=== PATIENT | female | born 1950 | race Caucasian/White ===

== ENCOUNTER 2016-06-02 12:56 | Emergency (ER) | payer MEDICARE ==
[2016-06-02 12:57] VITALS: BMI 43.0
--- NOTE | 2016-06-02 13:03 | C.PDOC ---
History Of Present Illness 66F hx of asthma and HTN c/o SOB and wheezing for the last 2 days. productive cough yellow sputum as well. subjective fever a couple days ago none today. reports her BP was high this morning as well. Time Seen by Provider: 06/02/16 13:02 Chief Complaint (Nursing): Shortness Of Breath Past Medical History Vital Signs: Last Vital Signs Temp 97.4 F L 06/02/16 12:57 Pulse 62 06/02/16 12:57 Resp 24 06/02/16 14:16 BP 190/98 H 06/02/16 12:57 Pulse Ox 99 06/02/16 13:52 - Medical History PMH: Arthritis, Asthma, HTN Surgical History: Cholecystectomy Family History: States: Unknown Family Hx - Social History Hx Tobacco Use: No Hx Alcohol Use: No Hx Substance Use: No - Immunization History Hx Tetanus Toxoid Vaccination: Yes Hx Influenza Vaccination: Yes Hx Pneumococcal Vaccination: Yes Review Of Systems Constitutional: Negative for: Fever, Chills, Weakness Cardiovascular: Negative for: Chest Pain, Edema Respiratory: Positive for: Cough, Shortness of Breath, Sputum, Wheezing. Negative for: Hemoptysis Gastrointestinal: Negative for: Nausea, Vomiting, Abdominal Pain Skin: Positive for: Rash (scattered itchy rash for over 2 months) Neurological: Negative for: Weakness, Numbness, Headache Physical Exam - Physical Exam Appears: Well, Non-toxic, No Acute Distress Skin: Warm, Dry Head: Atraumatic Eye(s): bilateral: PERRL Oral Mucosa: Moist Cardiovascular: Rhythm Regular, No Murmur Respiratory: No Accessory Muscle Use, No Rales, No Rhonchi, No Stridor, Wheezing (bilateral) Gastrointestinal/Abdominal: Soft, No Tenderness Extremity: No Calf Tenderness, No Swelling Neurological/Psych: Oriented x3, Other (no focal deficits) ED Course And Treatment O2 Sat by Pulse Oximetry: 99 Medical Decision Making Medical Decision Makinpm the pt feels better. on re-exam her wheezing is improved. she already has a lung specialist with whom she will follow up. return if worse. Disposition - Disposition Disposition: HOME/ ROUTINE Disposition Time: 14:27 Condition: IMPROVED - Clinical Impression Clinical Impression: Exacerbation of asthma, Respiratory infection
[2016-06-02] MEDS: Albuterol-Ipratrop 3 mg / 0.5 (3 ml) UD IH SCH ×3 (13:20→13:34)
[2016-06-02] MEDS ORDERED: Albuterol-Ipratrop 3 mg / 0.5 (3 ml) UD ONE (13:30)
[2016-06-02 14:47] VITALS: BP 162/84; PULSE 60; RESP 20; TEMP 97.5; O2SAT 98
--- NOTE | 2016-06-02 16:46 | RAD ---
HISTORY: sob wheezing COMPARISON: No prior. TECHNIQUE: Chest PA and lateral FINDINGS: LUNGS: No active pulmonary disease. PLEURA: No significant pleural effusion identified. No pneumothorax apparent. CARDIOVASCULAR: Normal. OSSEOUS STRUCTURES: No significant abnormalities. VISUALIZED UPPER ABDOMEN: Normal. OTHER FINDINGS: None. IMPRESSION: No active disease.
== END 2016-06-02 14:51 | disposition home or self-care (01) ==
LOC: C.ER 12:56
DX: J45.901 Unspecified asthma with (acute) exacerbation (principal); J06.9 Acute upper respiratory infection, unspecified

== ENCOUNTER 2016-08-25 04:32 | Emergency (ER) | payer MEDICARE ==
[2016-08-25 04:32] VITALS: BMI 43.0
[2016-08-25 04:44] VITALS: TEMP 98.1
[2016-08-25] MEDS ORDERED: Aluminum Hydroxide/Magnesium Hydroxide Susp (30 mL) PO STA (05:15)
[2016-08-25] MEDS ORDERED: Aluminum Hydroxide/Magnesium Hydroxide Susp (30 mL) ONE (05:24)
[2016-08-25 05:28] VITALS: RESP 18
--- NOTE | 2016-08-25 05:49 | C.PDOC ---
History Of Present Illness Patient is a 66 year old female who presents to the ER with a complaint of left sided throat pain since 19:00; 10 minutes after eating a coconut hard candy. Patient reports the pain as a scratching feeling. Denies choking, vomiting or recent injury. Time Seen by Provider: 08/25/16 04:45 Chief Complaint (Nursing): ENT Problem History Per: Patient History/Exam Limitations: None Onset/Duration Of Symptoms: Hrs Current Symptoms Are (Timing): Still Present Quality (Mouth/Throat): Other (Pain) Symptoms Have Been: Continuous Anticoagulant/Antiplatlet Use?: Unknown Recent Aspirin Use: Unknown Past Medical History Reviewed: Historical Data, Nursing Documentation, Vital Signs Vital Signs: Last Vital Signs Temp 98.1 F 08/25/16 06:04 Pulse 78 08/25/16 06:04 Resp 18 08/25/16 06:04 BP 179/82 H 08/25/16 06:04 Pulse Ox 97 08/25/16 06:26 - Medical History PMH: Arthritis, Asthma, HTN Surgical History: Cholecystectomy Family History: States: Unknown Family Hx - Social History Hx Tobacco Use: No Hx Alcohol Use: No Hx Substance Use: No - Immunization History Hx Tetanus Toxoid Vaccination: Yes Hx Influenza Vaccination: Yes Hx Pneumococcal Vaccination: Yes Review Of Systems ENT: Positive for: Throat Pain (Left sided). Negative for: Other (Choking) Gastrointestinal: Negative for: Vomiting Physical Exam - Physical Exam Appears: Non-toxic, No Acute Distress Skin: Normal Color, Warm, Dry, No Rash Head: Atraumatic, Normacephalic Eye(s): bilateral: Normal Inspection Oral Mucosa: Moist Throat: Normal, No Erythema, No Exudate, No Drooling Neck: Normal ROM, Supple Chest: Symmetrical, No Tenderness Cardiovascular: Rhythm Regular, No Friction Rub, No Murmur Respiratory: Normal Breath Sounds, No Rales, No Rhonchi, No Wheezing Gastrointestinal/Abdominal: Soft, No Tenderness Neurological/Psych: Oriented x3, Normal Speech, Normal Cognition, Normal Cranial Nerves, Normal Motor Gait: Steady ED Course And Treatment O2 Sat by Pulse Oximetry: 97 (Room air) Pulse Ox Interpretation: Normal Progress Note: Maalox administered. Lidocaine applied. On re-exam, the patient reports improvement of symptoms. Lungs are CTA, heart is RRR, abdomen is soft, non-tender and tolerating PO well. Ambulatory in the ED with stedy gait. Follow up with the medical doctor within 1-2 days. Return if worsened. Disposition - Disposition Referrals: [facility] at [facility] [Outside] Disposition: HOME/ ROUTINE Disposition Time: 05:47 Condition: GOOD Additional Instructions: Follow up with the medical doctor within 1-2 days. Return if worsened. Prescriptions: Mag&Al/Simet/Diphen/Lido [First Magic Mouthwash] 5 ml MM BID #1 kit Instructions: Foreign Body in Pharynx (ED) - Clinical Impression Clinical Impression: Sensation of foreign body in larynx - Scribe Statement The provider has reviewed the documentation as recorded by the Scribe Roel Lobo All medical record entries made by the Scribe were at my direction and personally dictated by me. I have reviewed the chart and agree that the record accurately reflects my personal performance of the history, physical exam, medical decision making, and the department course for this patient. I have also personally directed, reviewed, and agree with the discharge instructions and disposition.
[2016-08-25 06:05] VITALS: BP 179/82; PULSE 78
[2016-08-25 06:24] VITALS: O2SAT 97
== END 2016-08-25 06:06 | disposition home or self-care (01) ==
LOC: C.ER 04:32
DX: R09.89 Other specified symptoms and signs involving the circulatory and respiratory systems (principal); I10 Essential (primary) hypertension; M19.90 Unspecified osteoarthritis, unspecified site

== ENCOUNTER 2017-05-11 08:46 | Emergency (ER) | payer MEDICARE ==
[2017-05-11 08:59] VITALS: BMI 39.6
[2017-05-11 09:02] VITALS: RESP 18; O2SAT 98
[2017-05-11] MEDS ORDERED: Sodium Chloride 0.9% 500 ML IV ONE ×2 (09:31→09:56)
[2017-05-11 09:51] LABS: BASO # 0.1 K/uL (0.0-0.2); BASO % 0.7 % (0.0-2.0); EOS # 0.2 K/uL (0.0-0.7); HEMOGLOBIN 13.5 g/dL (11.0-16.0); LYMPH # 2.4 K/uL (1.0-4.3); LYMPH % 19.6 % (20.0-40.0); MEAN CELL VOLUME 83.2 fL (81.0-99.0); MEAN CORPUSCULAR HEMOGLOBIN 28.8 pg (27.0-31.0); MEAN CORPUSCULAR HGB CONC 34.6 g/dL (33.0-37.0); MEAN PLATELET VOLUME 9.7 fL (7.2-11.7); MONO # 0.8 K/uL (0.0-0.8); MONO % 6.9 % (0.0-10.0); NEUT # 8.6 K/uL (1.8-7.0); NEUT % 70.8 % (50.0-75.0); RBC 4.69 Mil/uL (3.80-5.20); RED CELL DISTRIBUTION WIDTH 13.9 % (11.5-14.5); WHITE BLOOD COUNT 12.2 K/uL (4.8-10.8)
--- NOTE | 2017-05-11 10:02 | RAD ---
PROCEDURE: CHEST RADIOGRAPH, 1 VIEW HISTORY: abd pain COMPARISON: Chest radiograph dated 06/02/2016. FINDINGS: LUNGS: Clear. PLEURA: Stable elevation of the right hemidiaphragm No pneumothorax or pleural fluid seen. CARDIOVASCULAR: Atherosclerotic aortic calcifications. Cardiomediastinal silhouette stably enlarged. OSSEOUS STRUCTURES: Unchanged. VISUALIZED UPPER ABDOMEN: Right upper quadrant surgical clips redemonstrated. OTHER FINDINGS: None. IMPRESSION: No active disease.
[2017-05-11] MEDS ORDERED: Iohexol 240 (50 ml) PO ONE (10:04)
--- NOTE | 2017-05-11 10:09 | C.PDOC ---
History Of Present Illness 67 year old female with a past medical history of constipation who presents to the emergency department with a complaint abdominal pain and discharge from the navel region x 2 weeks. Associated with vomiting, nausea, and dizziness. Reports seeing her primary care doctor and getting a colonoscopy completed with unremarkable results. Denies diarrhea. Time Seen by Provider: 05/11/17 09:15 Chief Complaint (Nursing): Abdominal Pain History Per: Patient History/Exam Limitations: no limitations Past Medical History Reviewed: Historical Data, Nursing Documentation, Vital Signs Vital Signs: Last Vital Signs Temp 98.2 F 05/11/17 12:15 Pulse 68 05/11/17 12:15 Resp 18 05/11/17 12:15 BP 132/82 05/11/17 12:15 Pulse Ox 98 05/11/17 18:26 - Medical History PMH: Arthritis, Asthma, HTN Surgical History: Cholecystectomy Family History: States: Unknown Family Hx - Social History Hx Tobacco Use: No Hx Alcohol Use: No Hx Substance Use: No - Immunization History Hx Tetanus Toxoid Vaccination: Yes Hx Influenza Vaccination: Yes Hx Pneumococcal Vaccination: Yes Review Of Systems Except As Marked, All Systems Reviewed And Found Negative. (As per HPI, otherwise negative) Gastrointestinal: Positive for: Nausea, Vomiting, Abdominal Pain, Other ( Discharge from navel region ). Negative for: Diarrhea Neurological: Positive for: Dizziness Physical Exam - Physical Exam Appears: Well, Non-toxic, Toxic Skin: Normal Color, Warm, Dry Eye(s): bilateral: Normal Inspection Throat: Normal Cardiovascular: Rhythm Regular, No Murmur Respiratory: Normal Breath Sounds, No Decreased Breath Sounds, No Accessory Muscle Use Gastrointestinal/Abdominal: No Normal Exam, Soft, Tenderness (LLQ tenderness. ) , Other (Positive surgical scar noted; healed. Ulceration noted to the umbilical area. Noninfected or cellulitis process. ) Back: Normal Inspection Extremity: Normal ROM Neurological/Psych: Oriented x3 ED Course And Treatment - Laboratory Results Result Diagrams: 05/11/17 09:48 05/11/17 09:48 O2 Sat by Pulse Oximetry: 98 (RA) Pulse Ox Interpretation: Normal Medical Decision Making Medical Decision Making: Time: 947 CMP Lipase Troponin I Iohexol 50 ml PO Morphine 2 mg IVP Zofran 4 mg IVP Pantoprazole 40 mg IVP Sodium Choride 1L Urinalysis Chest x-ray Abd & Pelvis PO & IV CT Time: 1000 --Chest x-ray --FINDINGS: LUNGS: Clear. PLEURA: Stable elevation of the right hemidiaphragm No pneumothorax or pleural fluid seen. CARDIOVASCULAR: Atherosclerotic aortic calcifications. Cardiomediastinal silhouette stably enlarged. OSSEOUS STRUCTURES: Unchanged. VISUALIZED UPPER ABDOMEN: Right upper quadrant surgical clips redemonstrated. OTHER FINDINGS: None. IMPRESSION: No active disease. Time: 1224 --Abd CT FINDINGS: LOWER THORAX: Scattered 3 mm left lower lobe ground-glass nodular densities. Cardiomegaly. LIVER: Unremarkable. No gross lesion or ductal dilatation. GALLBLADDER AND BILE DUCTS: Prior cholecystectomy with surgical clips in place. PANCREAS: Unremarkable. No gross lesion or ductal dilatation. SPLEEN: Unremarkable. ADRENALS: Unremarkable. No mass. KIDNEYS AND URETERS: Too small to characterize left interpolar hypo attenuating structure. . No hydronephrosis. No solid mass. VASCULATURE: Unremarkable. No aortic aneurysm. BOWEL: Unremarkable. No obstruction. No gross mural thickening. APPENDIX: Normal appendix. PERITONEUM: Right ventral herniorrhaphy and postsurgical changes. No free fluid. No free air. LYMPH NODES: Unremarkable. No enlarged lymph nodes. BLADDER: Unremarkable. REPRODUCTIVE: Unremarkable. BONES: Degenerative changes. No acute fracture. OTHER FINDINGS: None. IMPRESSION: No acute abdominal pelvic pathology. Scattered 3 mm ground-glass nodular densities in the left lower lobe. Dedicated CT follow-up of the chest is recommended. Incidental findings as above. patient feeling better, discussed ct scan findings with patient. Patient discharged home to follow up with pmd in 2 days started patient on abics to cover umbilicus skin region Disposition - Disposition Referrals: [facility] at [facility] [Outside] Disposition: HOME/ ROUTINE Disposition Time: 15:00 Condition: STABLE Additional Instructions: follow up with your doctor or medical clinic in 2 days call to make an appointment take medication as prescribed return to ER if symptoms worsens or progress Prescriptions: Cephalexin [Keflex] 500 mg PO TID #30 capsule Famotidine [Pepcid] 20 mg PO BID #20 tab Naproxen [Naprosyn] 500 mg PO BID PRN #16 tab PRN Reason: Pain, Moderate (4-7) Instructions: Acute Abdomen (Belly Pain), Adult (DC) Forms: Gen Discharge Inst Paraguayan, [facility] (Paraguayan) Print Language: CHINESE - Clinical Impression Clinical Impression: Abdominal pain
[2017-05-11 10:10] LABS: ALB/GLOB RATIO 1.2 (1.0-2.1); ALBUMIN 4.2 g/dL (3.5-5.0); ALT/SGPT 37 U/L (9-52); AST/SGOT 29 U/L (14-36); BLOOD UREA NITROGEN 11 mg/dL (7-17); CALCIUM 8.9 mg/dl (8.6-10.4); GFR AFRICAN-AMERICAN > 60; GFR NON-AFRICAN AMERICAN > 60; LIPASE 44 U/L (23-300)
[2017-05-11 10:17] LABS: SQUAMOUS EPITHIAL 1 /hpf (0-5); URINE BILIRUBIN NEGATIVE (NEGATIVE); URINE BLOOD NEGATIVE (NEGATIVE); URINE CLARITY Clear (Clear); URINE COLOR Yellow (YELLOW); URINE GLUCOSE (UA) NORMAL (Normal); URINE LEUKOCYTE ESTERASE NEG Leu/uL (Negative); URINE NITRATE NEGATIVE (NEGATIVE); URINE PROTEIN NEGATIVE (NEGATIVE); URINE UROBILINOGEN NORMAL mg/dL (0.2-1.0)
[2017-05-11] MEDS ORDERED: Iohexol 240 (50 ml) ONE (10:38)
[2017-05-11] MEDS ORDERED: Iodixanol 320 MG/ML 100 ML BOTTLE IV ONE (11:55)
[2017-05-11 12:15] VITALS: BP 132/82; PULSE 68; TEMP 98.2
--- NOTE | 2017-05-11 12:30 | CT ---
PROCEDURE: CT Abdomen and Pelvis with contrast HISTORY: abd pain COMPARISON: None. TECHNIQUE: Contrast dose: 100 mL Visipaque 320 Radiation dose: Total exam DLP = 1070.5 mGy-cm. This CT exam was performed using one or more of the following dose reduction techniques: Automated exposure control, adjustment of the mA and/or kV according to patient size, and/or use of iterative reconstruction technique. FINDINGS: LOWER THORAX: Scattered 3 mm left lower lobe ground-glass nodular densities. Cardiomegaly. LIVER: Unremarkable. No gross lesion or ductal dilatation. GALLBLADDER AND BILE DUCTS: Prior cholecystectomy with surgical clips in place. PANCREAS: Unremarkable. No gross lesion or ductal dilatation. SPLEEN: Unremarkable. ADRENALS: Unremarkable. No mass. KIDNEYS AND URETERS: Too small to characterize left interpolar hypo attenuating structure. . No hydronephrosis. No solid mass. VASCULATURE: Unremarkable. No aortic aneurysm. BOWEL: Unremarkable. No obstruction. No gross mural thickening. APPENDIX: Normal appendix. PERITONEUM: Right ventral herniorrhaphy and postsurgical changes. No free fluid. No free air. LYMPH NODES: Unremarkable. No enlarged lymph nodes. BLADDER: Unremarkable. REPRODUCTIVE: Unremarkable. BONES: Degenerative changes. No acute fracture. OTHER FINDINGS: None. IMPRESSION: No acute abdominal pelvic pathology. Scattered 3 mm ground-glass nodular densities in the left lower lobe. Dedicated CT follow-up of the chest is recommended. Incidental findings as above.
== END 2017-05-11 13:14 | disposition home or self-care (01) ==
LOC: C.ER 08:46
DX: R10.9 Unspecified abdominal pain (principal); I10 Essential (primary) hypertension
CPT/HCPCS: 71045; 74177; 80053; 81001; 83690; 84484; 85025; 96374; 96375; 99284; C9113; J2270; J2405; J7040; Q9966; Q9967

== ENCOUNTER 2018-07-02 11:30 | Emergency (ER) | payer MEDICARE ==
[2018-07-02 11:31] VITALS: BMI 40.6
--- NOTE | 2018-07-02 14:00 | C.PDOC ---
History Of Present Illness 68 y/o female with thyroid problem, htn, s/p hysterectomy 2 weeks ago at [place], comes from her primary care doctor. pt reports she has pain to her tongue since surgery from intubation, and sts since day after surgery she has been dizzy in her head and her body. pt denies headache. sts feels like she is leaning forward/off balance when when walking. feels better lying down. occasionally feels like vision is blurred. sent to ed by pmd whom she saw today. 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) History/Exam Limitations: no limitations Onset/Duration Of Symptoms: Days Current Symptoms Are (Timing): Still Present Past Medical History Reviewed: Historical Data, Nursing Documentation, Vital Signs Vital Signs: Last Vital Signs Temp 98.5 F 07/02/18 11:44 Pulse 75 07/02/18 11:44 Resp 18 07/02/18 11:44 BP 159/99 H 07/02/18 11:44 Pulse Ox 97 07/02/18 11:44 - Medical History PMH: Arthritis, Asthma, HTN, Hypothyroidism Surgical History: Cholecystectomy Family History: States: No Known Family Hx - Social History Hx Tobacco Use: No Hx Alcohol Use: No Hx Substance Use: No - Immunization History Hx Tetanus Toxoid Vaccination: Yes Hx Influenza Vaccination: Yes Hx Pneumococcal Vaccination: Yes Review Of Systems Constitutional: Negative for: Fever, Chills Cardiovascular: Negative for: Chest Pain Respiratory: Negative for: Shortness of Breath Gastrointestinal: Negative for: Nausea, Vomiting Neurological: Positive for: Dizziness. Negative for: Headache Physical Exam - Physical Exam Appears: Non-toxic, No Acute Distress Skin: Warm, Dry Head: Normacephalic, Other (flattened nasolabial fold on right side, slight facial droop to right side) Eye(s): bilateral: Normal Inspection Ear(s): Left: Normal, Right: Other (cerumen) Neck: Supple Chest: Symmetrical Cardiovascular: Rhythm Regular Respiratory: No Rales, No Rhonchi, No Wheezing Gastrointestinal/Abdominal: Soft, No Tenderness, No Guarding, No Rebound Neurological/Psych: Oriented x3, Normal Speech, Normal Cognition, Normal Cranial Nerves, Normal Motor, Normal Sensation, Other (normal finger to nose, normal rapid alternative movements) Gait: Unsteady ED Course And Treatment - Laboratory Results Result Diagrams: 07/02/18 14:56 07/02/18 14:56 O2 Sat by Pulse Oximetry: 97 (RA) Pulse Ox Interpretation: Normal Medical Decision Making Medical Decision Making: Plan: --Labs --UA --CT-Head labs normal, uti noted on ua. will get urine culture and give macrobid. both head ct and brain mri do not show any acute findings. I called Dr Pemberton; she was not available; spoke to SOLOMON Pemberton; I will dc pt with macrobid and mecizine with follow up with Dr Pemberton tomorrow and recommend outpatient f/u with neurology and with surgeon from [facility] Disposition Counseled Patient/Family Regarding: Studies Performed, Diagnosis, Need For Followup, Rx Given - Disposition Referrals: Loulou Pemberton DO [Doctor Osteopathy] - Issa Valentine MD [Staff Provider] - Disposition: HOME/ ROUTINE Condition: GOOD Prescriptions: Meclizine HCl 12.5 mg PO Q6 #30 tablet Nitrofurantoin Macrocrystal [Nitrofurantoin] 100 mg PO BID #14 capsule Instructions: Vertigo (a Type of Dizziness) (DC), Urinary Tract Infection, Adult (DC) Forms: Gen Discharge Inst Polish, [facility] (Polish) - Clinical Impression Clinical Impression: Dizziness, UTI (urinary tract infection) - PA / [employer] / Resident Statement / has reviewed & agrees with the documentation as recorded. - Scribe Statement The provider has reviewed the documentation as recorded by the Grecia Torres Provider Attestation All medical record entries made by the Grecia were at my direction and personally dictated by me. I have reviewed the chart and agree that the record accurately reflects my personal performance of the history, physical exam, medical decision making, and the department course for this patient. I have also personally directed, reviewed, and agree with the discharge instructions and disposition.
[2018-07-02 15:00] LABS: BASO # 0.1 K/uL (0.0-0.2); BASO % 0.6 % (0.0-2.0); EOS # 0.4 K/uL (0.0-0.7); EOS % 4.2 % (0.0-4.0); HEMOGLOBIN 13.1 g/dL (11.0-16.0); LYMPH # 2.9 K/uL (1.0-4.3); LYMPH % 27.4 % (20.0-40.0); MEAN CORPUSCULAR HGB CONC 33.9 g/dL (33.0-37.0); MEAN PLATELET VOLUME 9.7 fL (7.2-11.7); MONO # 0.7 K/uL (0.0-0.8); NEUT # 6.4 K/uL (1.8-7.0); NEUT % 60.8 % (50.0-75.0); RBC 4.5 Mil/uL (3.80-5.20); RED CELL DISTRIBUTION WIDTH 13.5 % (11.5-14.5); WHITE BLOOD COUNT 10.6 K/uL (4.8-10.8)
[2018-07-02 15:03] LABS: MEAN CELL VOLUME 85.5 fL (81.0-99.0)
[2018-07-02 15:12] LABS: ALB/GLOB RATIO 1.3 (1.0-2.1); ALBUMIN 4.6 g/dL (3.5-5.0); ALT/SGPT 19 U/L (9-52); AST/SGOT 19 U/L (14-36); BLOOD UREA NITROGEN 12 mg/dL (7-17); CALCIUM 9.8 mg/dl (8.6-10.4); GFR NON-AFRICAN AMERICAN > 60; LIPASE 45 U/L (23-300)
--- NOTE | 2018-07-02 15:34 | CT ---
Date of service: 07/02/2018 PROCEDURE: CT HEAD WITHOUT CONTRAST. HISTORY: Dizzy, mild right facial droop dec nasolabial fol COMPARISON: None available. TECHNIQUE: Axial computed tomography images were obtained through the head/brain without intravenous contrast. Radiation dose: Total exam DLP = 1149.86 mGy-cm. This CT exam was performed using one or more of the following dose reduction techniques: Automated exposure control, adjustment of the mA and/or kV according to patient size, and/or use of iterative reconstruction technique. FINDINGS: HEMORRHAGE: No intracranial hemorrhage. BRAIN: There are mild chronic microangiopathic changes. There is no mass, mass effect or abnormal extra-axial fluid collection. There is no territorial infarction. The midline sagittal structures are normal.There are coarse atherosclerotic calcifications in the cavernous carotid arteries. VENTRICLES: The ventricles are normal in size, shape and configuration. CALVARIUM: There is no calvarial fracture or extracranial soft tissue swelling. PARANASAL SINUSES: There is mild mucoperiosteal thickening in the ethmoid air cells. The remaining included paranasal sinuses are clear. MASTOID AIR CELLS: Predominantly clear. OTHER FINDINGS: None. IMPRESSION: No acute intracranial abnormality.If there is a persistent focal neurologic deficit and an ongoing clinical concern for acute infarction, an MRI of the brain without intravenous contrast would be a more sensitive modality for evaluation of hyperacute/acute ischemic infarction. Mild chronic microangiopathic changes.
[2018-07-02 15:48] LABS: SQUAMOUS EPITHIAL 7 /hpf (0-5); URINE BACTERIA RARE (<OCC); URINE BILIRUBIN NEGATIVE (NEGATIVE); URINE BLOOD 2+ (NEGATIVE); URINE CLARITY Hazy (Clear); URINE COLOR Yellow (YELLOW); URINE GLUCOSE (UA) NORMAL (Normal); URINE LEUKOCYTE ESTERASE 2+ Leu/uL (Negative); URINE PROTEIN NEGATIVE (NEGATIVE); URINE UROBILINOGEN NORMAL mg/dL (0.2-1.0)
[2018-07-02 16:34] VITALS: O2SAT 97
[2018-07-02 17:26] VITALS: BP 132/83; PULSE 82; RESP 19; TEMP 97.9
--- NOTE | 2018-07-02 17:26 | MRI ---
Date of service: 07/02/2018 PROCEDURE: MRI BRAIN WITHOUT CONTRAST HISTORY: dizzy. right facial droop COMPARISON: CT head without contrast performed earlier the same day TECHNIQUE: Multiplanar, multisequence MR images of the brain were obtained without intravenous contrast enhancement. FINDINGS: HEMORRHAGE: None DWI: No evidence of an acute or early subacute infarction. BRAIN PARENCHYMA: There are moderate chronic microangiopathic changes. There is no mass, mass effect or abnormal extra-axial fluid collection. There is no territorial infarction. The midline sagittal structures are normal. VENTRICLES: There is mild age-related global parenchymal volume loss and proportionate enlargement of the ventricles and cortical sulci. CRANIUM: There is normal bone marrow signal pattern. ORBITS: Grossly unremarkable. PARANASAL SINUSES/MASTOIDS: Moderate mucosal thickening in the paranasal sinuses. The mastoid air cells are predominantly clear. VASCULAR SYSTEM: There are normal signal voids in the larger intracranial arteries. OTHER FINDINGS: None. IMPRESSION: No acute intracranial abnormality. Moderate chronic microangiopathic changes and mild age-related global parenchymal volume loss.
== END 2018-07-02 18:30 | disposition home or self-care (01) ==
LOC: C.ER 11:30
DX: R42 Dizziness and giddiness (principal); N39.0 Urinary tract infection, site not specified
CPT/HCPCS: 70450; 70551; 80053; 81001; 83690; 85025; 87086; 96374; 99285; J2060